=== PATIENT | male | born 1995 | race Two or more races ===

== ENCOUNTER 2021-08-31 08:09 | Emergency (ER) | payer BC, MEDICAID ==
[~2021-08-31] VITALS: Ht 162.6 cm; Wt 80.0 kg
[2021-08-31 08:38] VITALS: BP 154/78
[2021-08-31] MEDS ORDERED: IBUP800T27 PO (10:20)
== END 2021-08-31 10:24 | disposition home or self-care (01) ==
LOC: ER 08:09
DX: S90.32XA Contusion of left foot, initial encounter (principal); W18.09XA Striking against other object with subsequent fall, initial encounter; Y93.89 Activity, other specified; Y92.39 Other specified sports and athletic area as the place of occurrence of the external cause; Y99.8 Other external cause status
CPT/HCPCS: 73630